=== PATIENT | female | born 1980 | race Caucasian/White ===

== ENCOUNTER → 2019-09-12 08:29 | Outpatient (CLI) | payer BC, SELFPAY ==
--- NOTE | ~2019-09-12 | MMUS_ITS ---
EXAMINATION: MM diag jennifer implant LT w lesley, US breast LT limited HISTORY: Palpable left breast mass TECHNIQUE: Additional 3-D tomosynthesis images of the left breast were performed and synthetic 2-D im ages were generated. CAD analysis was submitted and interpreted. High resolution left breast ultrasou nd was performed. COMPARISON: Comparison to multiple prior studies sequentially, with oldest reviewed study dated 12/24. FINDINGS: MAMMOGRAPHIC FINDINGS: The breasts are extremely dense, which lowers the sensitivity of mammography. There is a focal asymme try adjacent to the left breast implant laterally on spot cc view. This is not identified on addition al images. ULTRASOUND: Left breast ultrasound: At 4:00 in the area of palpable concern, 7 cm from the nipple, there is an oval circumscribed hypoech oic mass abutting the implant. There is mixed posterior attenuation with areas of shadowing no signif icant internal vascularity. This mass measures 11 x 6 x 10 mm. There are low level internal echoes. IMPRESSION: 1. 11 mm oval circumscribed hypoechoic left breast mass at 4:00, 7 cm from the nipple in the area of palpable concern. There is posterior shadowing and no internal vascularity. 2. Ultrasound-guided left breast biopsy recommended. BI-RADS category 4, suspicious findings. Reviewed, dictated and finalized at location A. IMPRESSION: 1. 11 mm oval circumscribed hypoechoic left breast mass at 4:00, 7 cm from the nipple in the area of palpable concern. There is posterior shadowing and no int ernal vascularity. 2. Ultrasound-guided left breast biopsy recommended. BI-RADS category 4, suspicious findings.
== END ==
PROVIDERS: PCP Physician Assistant; Visit Provider Nurse Practitioner Obstetrics & Gynecology
DX: N63.23 Unspecified lump in the left breast, lower outer quadrant (principal)
CPT/HCPCS: 76642; 77061; 77065; G0279

== ENCOUNTER → 2020-03-31 18:10 | Outpatient (CLI) | payer BC, SELFPAY ==
--- NOTE | ~2020-03-31 | MM_ITS ---
EXAMINATION: MM scrn jennifer implant BI w lesley HISTORY: Screening mammogram TECHNIQUE: Craniocaudal and mediolateral oblique 3-D tomosynthesis images with implant displacement a nd synthetic 2-D images were generated. Craniocaudal and mediolateral oblique views of the breasts wi thout implant displacement were obtained using full field digital mammography. CAD analysis was submi tted and interpreted. COMPARISON: Comparison to multiple prior studies sequentially, with oldest reviewed study dated 11/2015. BREAST PARENCHYMAL COMPOSITION: The breasts are extremely dense, which lowers the sensitivity of mamm ography. FINDINGS: There are subpectoral silicone implants. There is no evidence of suspicious mass, calcifica tion, or architectural distortion to suggest malignancy in either breast. There has been no suspiciou s interval change. IMPRESSION: 1. No mammographic evidence of malignancy. 2. Recommend routine screening mammography in one year. BI-RADS Category 1: Negative Reviewed, dictated and finalized at location A.
== END ==
PROVIDERS: PCP Physician Assistant; Visit Provider Nurse Practitioner Obstetrics & Gynecology
DX: Z12.31 Encounter for screening mammogram for malignant neoplasm of breast (principal)
CPT/HCPCS: 77063; 77067

== ENCOUNTER → 2021-01-06 15:28 | Outpatient (CLI) | payer BC, SELFPAY ==
--- NOTE | ~2021-01-06 | US_ITS ---
EXAMINATION: US thyroid EXAM DATE: 01/06/2021 15:43 INDICATION: Nontoxic goiter. Weight gain, fatigue, hair loss. TECHNIQUE: Multiple grayscale and Doppler images of the thyroid were obtained (by a technologist who performed the scan) and subsequently reviewed. Individual nodules and recommendations may be reporte d in accordance with TI-RADS system as designated by the 2017 ACR White Paper TI-RADS committee. The re is no prior study for comparison. FINDINGS: The right thyroid lobe measures 5.3 x 1.5 x 1.3 cm, the left measuring 4.9 x 0.9 x 1.4 cm. Mildly het erogeneous thyroid echogenicity with right thyroid lobe nodule measuring 6 mm, not likely clinically significant. IMPRESSION: Mild thyromegaly. Reviewed, dictated and finalized at location A. IMPRESSION: Mild thyromegaly.
== END ==
PROVIDERS: Visit Provider Internal Medicine Endocrinology, Diabetes & Metabolism
DX: E04.9 Nontoxic goiter, unspecified (principal)
CPT/HCPCS: 76536

== ENCOUNTER → 2021-04-07 16:43 | Outpatient (CLI) | payer BC, SELFPAY ==
--- NOTE | ~2021-04-07 | MM_ITS ---
EXAMINATION: MM scrn jennifer implant BI w lesley HISTORY: Screening mammogram TECHNIQUE: Craniocaudal and mediolateral oblique 3-D tomosynthesis images with implant displacement a nd synthetic 2-D images were generated. Craniocaudal and mediolateral oblique views of the breasts wi thout implant displacement were obtained using full field digital mammography. CAD analysis was submi tted and interpreted. COMPARISON: Comparison to multiple prior studies sequentially, with oldest reviewed study dated 11/2015. BREAST PARENCHYMAL COMPOSITION: The breasts are extremely dense, which lowers the sensitivity of mamm ography. FINDINGS: There are subpectoral silicone implants. There is no evidence of suspicious mass, calcifica tion, or architectural distortion to suggest malignancy in either breast. There has been no suspiciou s interval change. IMPRESSION: 1. No mammographic evidence of malignancy. 2. Recommend routine screening mammography in one year. BI-RADS Category 1: Negative Reviewed, dictated and finalized at location A.
== END ==
PROVIDERS: Visit Provider Nurse Practitioner Obstetrics & Gynecology
DX: Z12.31 Encounter for screening mammogram for malignant neoplasm of breast (principal)
CPT/HCPCS: 77063; 77067

== ENCOUNTER → 2021-12-09 15:19 | Outpatient (CLI) | payer BC, SELFPAY ==
--- NOTE | ~2021-12-09 | US_ITS ---
EXAMINATION: US thyroid DATE: 12/09/2021 15:34 INDICATION: Goiter. TECHNIQUE: Multiple ultrasound images of the thyroid were obtained. COMPARISON: None. FINDINGS: The right thyroid lobe measures 5.6 x 1.3 x 1.6 cm. The left thyroid lobe measures 5.1 x 1.1 x 1.6 c m. There is normal echotexture and echogenicity throughout the thyroid gland. 6 mm right mid lobe mo stly solid hypoechoic nodule, wider than tall, smoothly marginated without echogenic foci (TR 4). 6 m m left inferior lobe solid hypoechoic nodule, wider than tall, smoothly marginated without echogenic foci (TR 4) nodule. 3 mm left isthmus solid hypoechoic nodule, wider than tall, smoothly marginated w ithout echogenic foci (TR 4). Normal vascular flow is present. IMPRESSION: 1. Multiple subcentimeter thyroid nodules, likely of no clinical significance, requiring no biopsy or additional follow-up. Reviewed, dictated and finalized at location K.
== END ==
PROVIDERS: PCP Physician Assistant; Visit Provider Internal Medicine Endocrinology, Diabetes & Metabolism
DX: E04.9 Nontoxic goiter, unspecified (principal)
CPT/HCPCS: 76536

== ENCOUNTER 2022-03-26 15:28 | Outpatient (CLI) | payer BC, SELFPAY | END 2022-03-26 15:29 | disposition home or self-care (01) | LOC: ANHSURGERY 15:35 | PROVIDERS: PCP Physician Assistant; Visit Provider Obstetrics & Gynecology | DX: Z01.818 Encounter for other preprocedural examination (principal); N92.0 Excessive and frequent menstruation with regular cycle | CPT/HCPCS: 36415; 86850; 86900; 86901 ==

== ENCOUNTER 2022-03-31 00:48 | Day surgery (SDC) | payer BC, SELFPAY ==
--- NOTE | 2022-03-10 13:43 | SUR.PREOP ---
Office aware patient request to donate own blood prior to surgery and office would need to contact Patient Services at [phone] [employer] would then determine if request qualifies and follow up with request. I also inform patient.
[2022-03-25 14:56] VITALS: BMI 25.0
--- NOTE | 2022-03-25 15:08 | PC.NURSE ---
Report to the Outpatient Waiting Room, entrance under the green pavilion located off [facility], at time _0600_ on date _[id number]_. OR Time: _0730_. Time changes happen often and if your time is changed the preop area will call you the afternoon before. - You and your visitor will be asked to self-screen and do not enter if you have any COVID symptoms. - Only one visitor and NO children visitors are allowed at this time. - The patient visitor is requested to leave or wait in car when not with patient due to restrictions. - A mask is required within the hospital. Patients may have clear liquids (water, carbonated beverages, clear teas, apple juice) until 3 hours prior to surgery with a maximum of 20 ounces. - No food from midnight until time of surgery Take the following medications with a SIP of water the morning of surgery: Levothyroxine Medications to discontinue per physician Multivitamin Date to take last iooc___[id number] Please no make-up, nail cambodian, hairspray, perfume, deodorant, or body powder the day of surgery. No jewelry (including any body piercings) or valuables the day of surgery, leave them at home. Please take a shower or bath the night before, or the morning of, surgery with an antibacterial soap. Wear comfortable, loose fitting clothing. - Jewelry must be removed prior to entering the operating room. Rings and piercings that are not removed may be cut off. - The hospital will not accept responsibility for valuables. - Please leave all valuables, including medications, at home the day of surgery. If you are going home after surgery, a licensed services delivery driver must drive you home. - NO public transportation without another adult. - We recommend that an adult stay with you for 24 hours following discharge. - We also recommend that you do not drive, make important decision, drink alcoholic beverages, or take any drugs that were not prescribed by your health care provider for at least 24 hours after your discharge time. Follow any additional instructions given to you from your surgeon. If you or anyone in your household have experienced Covid symptoms in the past week, please notify your surgeon or the nurse liaison at the phone number below for possible testing. Telephone instructions given to __Patient__and asked if any additional questions and then verbalized understanding. Patient advised to call surgeon office or pre surgery nurse liaison [phone] if any additional questions.
--- NOTE | 2022-03-30 13:43 | P.PNAN_ITS ---
Anes - Initial Pre Proc Eval Procedure: Operation Date: 03/31/22 07:30 Proposed Procedures p Total Laparoscopic Hysterectomy with Bilateral Salpingo Oophorectomy - Angela Campbell MD Date/Time: 03/30/22 13:43 Surgeon: Angela Campbell MD Pre Op Diagnosis: menorrhaghia Patient Data Age: 41 Gender: F Height: 1.78 m Weight: 79 kg Allergies Allergy/AdvReac Type Severity Reaction Status Date / Time nickel Allergy Unknown HIVES Verified 03/31/22 07:10 penicillamine Allergy Unknown Unknown Verified 03/31/22 07:10 oxycodone AdvReac Intermediate Nausea and Verified 03/31/22 07:10 Vomiting Home Medications Medication Instructions Recorded Confirmed Type levothyroxine 50 mcg tablet 50 mcg PO DAILY 07/14/21 03/31/22 History (Synthroid) multivitamin 1 tablet PO DAILY 03/25/22 03/31/22 History Patient hx anesthesia problems: post op nausea/vomiting Family hx anesthesia problems: none Results Review: All pre-operative results and documents have been reviewed as part of the pre- operative evaluation. [facility] Past Medical History Medical History (Updated 03/30/22 @ 13:43 by Aaron Johnson MD) Hypothyroid Surgical History Surgical History (Updated 12/15/21 @ 16:11 by Skylar Tinoco) History of breast surgery Family History Family History Mother Heart disease Social History Social History Smoking packs per day: 0.75 Smoking cigarettes per day: 15.0 Years smoked: 5 Smoking pack-years: 3.75 Smoking status: Former smoker Tobacco type: cigarettes Smoking end date: 03/25/02 Alcohol intake: current Drinks per week: 3 Living arrangements: with family Spiritual care concerns: No Anes - Eval Final PreProcedure Day of Procedure 03/30/22 13:43 Patient weight: normal Heart: regular rate and rhythm Lungs: clear to auscultation Airway: Mallampati scale class II Neurological: alert and oriented Last oral intake: >/= 8 hours ASA classification: II Emergent: no Anesthetic plan: proceed Anesthesia type and monitoring: general ETT and standard monitoring Results Review: All pre-operative results and documents have been reviewed as part of the pre- operative evaluation. Informed Consent: The patient's anesthetic plan and its attendant risks and benefits were discussed with the patient/family/POA. Questions were solicited and answers provided to the satisfaction of the patient/family/POA.
[2022-03-31] VITALS (12 sets, daily range): BP systolic 81–124; BP diastolic 46–95; PULSE 48–84; RESP 12–18; TEMP 36.3–37.3; O2SAT 97–100
[2022-03-31] MEDS: LACTATED RINGERS 1,000 ML 30 ML IV CONT ×2 (06:55→09:31)
[2022-03-31] MEDS: KETOROLAC 15 MG/ML VIAL (*BKC) IV PUSH (07:06)
[2022-03-31] MEDS: SCOPOLAMINE 1.5 MG PATCH TRANSDERM (07:06)
[2022-03-31] MEDS: ACETAMINOPHEN 500 MG TABLET 1000 MG PO (07:06)
--- NOTE | 2022-03-31 07:07 | WPDHPUPDATE1 ---
History and Physical Update Update Date/Time: 03/31/22 07:07 History and Physical has been reviewed, including an updated exam of the patient. There are NO changes in the patient's condition. Risks, benefits, and alternatives have been discussed and questions answered. Patient agrees to proceed with procedure.
[2022-03-31] MEDS: ceFAZolin 2 GM/D5W 50 ML 2 GM/50 ML BAG IVPB (07:29)
[2022-03-31] MEDS: ceFAZolin SODIUM 1 GM VIAL (08:22)
--- NOTE | 2022-03-31 09:24 | P.OP_ITS ---
Procedure Note - Detailed Date of Procedure 03/31/22 Pre-op Diagnosis menorrhaghia Post-op Diagnosis Same Procedure Performed Total laparoscopic hysterectomy and bilateral oophorectomy. Surgeon Angela Campbell MD Anesthesia General Indications Menorrhagia Findings Paracervical scar tissue, increased vascularity to the uterus, some scarring in the posterior cul-de-sac. Normal-appearing ovaries. Enlarged, mildly enlarged uterus. Description of Procedure This patient was taken to the operating room. She was prepped and draped in the dorsal lithotomy position after induction of general anesthesia. The uterine manipulator and Lulu cup were placed. This was done with a speculum and tenaculum. The speculum was placed. The cervix was grasped with a tenaculum. The stay sutures were placed at 3 and 9:00 a.m.. The stay sutures of 0 Vicryl were brought through the appropriately sized Lulu cup. The tip of the JERILYN manipulator was placed in the intrauterine cavity. The cup was slid into place around the cervix and into the fornices. It was locked into place. The sutures were then wrapped around the handle and tied under tension. A 5 mm skin incision was made in the left upper quadrant the abdomen. A 5 mm trocar was inserted into the intrauterine cavity under direct visualization of the scope. Pneumoperitoneum was achieved. A left lower quadrant 11 mm incision was made with scalpel. An 11 mm trocar was inserted into the anterior abdominal cavity under direct visualization the scope. A 5 mm infraumbilical incision was made with a scalpel and a 5 mm trocar was inserted the intra-abdominal cavity under direct visualization of the scope. Bilateral ureteral lysis was performed. This was done from the pelvic brim down to the uterine artery. This was done with careful dissection using sharp and blunt dissection. The infundibulopelvic ligaments were isolated after identification of the ureters bilaterally. These infundibulopelvic ligaments were cauterized and transected with LigaSure cautery. The para ovarian tissue was cauterized and transected with LigaSure cautery bilaterally. Moving around the ovary into the broad ligament the tissue was cauterized transected with Lig aSure cautery. The round ligaments were cauterized transected with LigaSure cautery this was all done in a bilateral fashion. In a stepwise fashion along the lateral aspects of the uterus the round ligament and broad ligaments were cauterized transected down to the level of the uterine arteries. A bladder flap was created in the bladder was moved distally to the end of the cervix and over the Lulu cup. The bilateral uterine arteries were cauterized and transected. Colpotomy was then performed. In a circumferential fashion the vagina was transected using unipolar cautery. The incision was made down on the Lulu cup. The uterus, cervix, fallopian tubes and ovaries were taken out through the vagina. A pneumo occluder was placed in the vagina. The vaginal cuff was closed with a 0 V lock suture in a running fashion. The pelvis was irrigated with copious amounts antibiotic irrigation. The ureters were again examined and found to be intact and flowing freely under the uterine arteries into the bladder. The bladder was intact. It was examined directly. The vagina was irrigated with Betadine solution after removal of the Pneumo occluder. The patient was taken to recovery room. She was stable condition. Sponge lap and needle counts were correct x2. Estimated Blood Loss 75 Drains Yes Packing No Pathology Yes Complications No immediate complications Condition Stable Disposition Floor
--- NOTE | 2022-03-31 09:44 | SUR.PHASEI ---
around 0935 pt started to become hypotensive in 80sbp and bradycardic in 40s. dr church was informed and said to open her fluids and continue to monitor. Dr church said it could be due to the fentanyl that he just gave her upon arrival to the PACU. pt is responsive to voice and oriented. Pt said she is sensitive to pain medicine. Will continue to monitor. pt abd is soft. pt pain 3/10 now.
[2022-03-31] MEDS: fentaNYL CITRATE INJ (*CRX) 100 MCG/2 ML VIAL 25 MCG IV PUSH (10:05)
[2022-03-31] MEDS: DEXTROSE 5%/0.45% SOD CHL 1,000 ML 125 ML IV CONT (11:18)
[2022-03-31] MEDS: ONDANSETRON INJ 4 MG/2 ML VIAL IV PUSH (12:15)
[2022-03-31] MEDS: ESTRADIOL 7 DAY 0.05 MG PATCH TRANSDERM (12:18)
[2022-03-31] MEDS: KETOROLAC 30 MG/ML VIAL (*BKC) IV PUSH (12:46)
[2022-03-31] MEDS: HYDROcodone/acetaminophen (*CRX) 5-325 MG TABLET 1 TAB PO (19:47)
[2022-03-31] MEDS: IBUPROFEN 600 MG TABLET PO (19:48)
[2022-04-01 05:16] VITALS: BP 94/62; PULSE 63; RESP 18; TEMP 36.6; O2SAT 100
--- NOTE | 2022-04-01 07:28 | WPDANESPN ---
Anes - Prog Note Post-Op Date/Time: 04/01/22 07:28 Cardiovascular status: normal Respiratory status: normal Airway patency: baseline Mental status: baseline Post-Op hydration status: normal Vital Signs: Last Vital Signs Temp 97.8 F 04/01/22 05:16 Pulse 63 04/01/22 05:16 Resp 18 04/01/22 05:16 BP 94/62 L 04/01/22 05:16 Pulse Ox 100 04/01/22 05:16 O2 Del Method Room Air 04/01/22 05:16 O2 Flow Rate 6 03/31/22 09:45 Pain Score (VAS): 0/10 I/O: Intake & Output 03/31/22 03/31/22 04/01/22 15:59 23:59 07:59 Intake Total 240 2011 1100 Output Total 130 1850 1200 Balance 110 161 -100 Post-procedural complaints: none Patient Feedback: Patient satisfied with anesthetic care.
[2022-04-01] MEDS: IBUPROFEN 600 MG TABLET PO (08:09)
--- NOTE | 2022-04-01 08:20 | PM.GYNPNOP ---
UTILITY LINEMAN - A/P Postoperative Procedures: Procedures Operation Date: 03/31/22 07:30 Actual Procedure Side Surgeon p Total Laparoscopic Hysterectomy with Bilateral Salpingo Oophorectomy Bilateral Angela Campbell MD Postoperative day: 1 Postoperative status: doing well Postoperative plan: see orders Time Spent With Patient Time: Total time spent is greater than 50% in coordination of care (as documented) at patient's floor/unit and/or counseling patient: Time with patient: less than 15 minutes UTILITY LINEMAN- PN:Subj Post-Op Subjective Date/time seen: 04/01/22 08:20 Subjective: patient reports feeling better, patient has no complaints and pain is well controlled Exam Const: General: healthy appearing, comfortable and no acute distress Resp: Auscultation: clear to auscultation bilaterally, no rales, no rhonchi and no wheezes Cardio: Rate: regular rate Heart sounds: no click, no murmurs and no rubs GI: Inspection: non-distended Auscultation: normal bowel sounds Extrem: General: normal to inspection, no pedal edema and no calf tenderness UTILITY LINEMAN - PN: Obj Data Vital Signs Vital Signs: Vital Signs - 24 hr 03/31/22 09:30 03/31/22 09:45 03/31/22 09:35 Temperature 97.3 F L Pulse Rate 61 48 L 54 L Respiratory Rate 12 14 13 Blood Pressure 124/95 H 82/60 L 81/46 L Pulse Oximetry 100 100 99 Oxygen Delivery Simple Face Mask Simple Face Mask Simple Face Mask Oxygen Flow Rate 6 6 6 03/31/22 10:00 03/31/22 10:15 03/31/22 10:30 Temperature Pulse Rate 56 L 55 L 55 L Respiratory Rate 13 13 13 Blood Pressure 88/63 L 96/62 L 96/62 L Pulse Oximetry 100 100 100 Oxygen Delivery Room Air Room Air Room Air Oxygen Flow Rate 03/31/22 10:45 03/31/22 11:05 03/31/22 11:00 Temperature 97.5 F L Pulse Rate 63 62 Respiratory Rate 16 18 Blood Pressure 98/70 L 91/55 L Pulse Oximetry 100 100 Oxygen Delivery Room Air Room Air Oxygen Flow Rate 03/31/22 17:00 03/31/22 17:00 03/31/22 19:45 Temperature 99.2 F Pulse Rate 79 84 Respiratory Rate 18 18 Blood Pressure 97/64 L Pulse Oximetry 99 99 Oxygen Delivery Room Air Room Air Oxygen Flow Rate 03/31/22 23:10 03/31/22 19:45 03/31/22 23:10 Temperature 98.8 F 98.6 F Pulse Rate 68 70 68 Respiratory Rate 18 18 18 Blood Pressure 92/55 L 97/60 L Pulse Oximetry 97 98 97 Oxygen Delivery Room Air Oxygen Flow Rate 04/01/22 05:16 04/01/22 05:16 Temperature 97.8 F Pulse Rate 63 63 Respiratory Rate 18 18 Blood Pressure 94/62 L Pulse Oximetry 100 100 Oxygen Delivery Room Air Oxygen Flow Rate Intake/Output Intake/Output: Intake & Output 03/29/22 03/30/22 03/31/22 04/01/22 23:59 23:59 23:59 23:59 Intake Total 2301 1100 Output Total 1980 1200 Balance 321 -100 Meds/Results Medications: Active Medications Generic Name Dose Route Start Last Admin Trade Name Freq PRN Reason Stop Dose Admin Hydrocodone Bitart/Acetaminophen 1 tab 03/31/22 10:54 03/31/22 19:47 Hydrocodone/Acetaminophen (*Crx) 5-325 Mg Tablet PO 1 tab Q3H PRN Administration Pain Rated 5 or Less Hydrocodone Bitart/Acetaminophen 1 tab 03/31/22 10:54 Hydrocodone/Acetaminophen (*Crx) 10-325 Mg Tablet PO Q3H PRN Pain Rated 6 or Greater Estradiol 0.05 mg 03/31/22 10:54 03/31/22 12:18 Estradiol 7 Day 0.05 Mg Patch TRANSDERM 0.05 mg WEEKLY CECE Administration Ibuprofen 600 mg 03/31/22 10:54 04/01/22 08:09 Ibuprofen 600 Mg Tablet PO 600 mg Q6H PRN Administration Cramping Ketorolac Tromethamine 30 mg 03/31/22 10:54 03/31/22 12:46 Ketorolac 30 Mg/Ml Vial (*Bkc) IV PUSH 04/05/22 10:53 30 mg Q6H PRN Administration Pain Rated 4-6 Levothyroxine Sodium 50 mcg 04/01/22 06:30 04/01/22 05:50 Levothyroxine Sodium 50 Mcg Tablet PO Not Given DAILY@0630 CECE Naloxone HCl 0.1 mg 03/31/22 10:54 Naloxone Hcl 0.4 Mg/Ml Vial IV PUSH Q2M PRN Respiratory rate less than 10 Ondansetro
[2022-04-01 08:40] VITALS: BP 102/65; PULSE 76; RESP 18; TEMP 36.6; O2SAT 100
== END 2022-04-01 09:50 | disposition home or self-care (01) ==
LOC: ANHSURGERY 09:57 → ANHOB2 11:07
PROVIDERS: PCP Physician Assistant; Visit Provider Obstetrics & Gynecology
PROC: 0UT9FZZ Resection of Uterus, Via Natural or Artificial Opening With Percutaneous Endoscopic Assistance (ICD-10-PCS; CPT 58552; principal; 2022-03-31 07:30)
DX: D25.9 Leiomyoma of uterus, unspecified (principal); N92.0 Excessive and frequent menstruation with regular cycle; N83.209 Unspecified ovarian cyst, unspecified side; N94.6 Dysmenorrhea, unspecified
CPT/HCPCS: 58552; 88307; 99199; A9270; J0690; J1100; J1170; J1885; J2250; J2405; J2704; J3010; J7030; J7120

== ENCOUNTER → 2022-04-12 12:35 | Outpatient (CLI) | payer BC, SELFPAY ==
--- NOTE | ~2022-04-12 | CT_ITS ---
EXAMINATION: CT abdomen pelvis w con INDICATION: Left inguinal pain, recent hysterectomy TECHNIQUE: Computed tomographic images of the abdomen and pelvis were obtained after the administrati on of 100 cc of Omnipaque 350 intravenous contrast. The dose-length product (DLP) was 699.90 mGy-cm. Automated exposure control and iterative reconstruction technique were employed. COMPARISON: None available FINDINGS: The lung bases are clear. The heart size is normal. The liver, spleen, pancreas, gallbladde r, and adrenal glands are normal. The kidneys are unremarkable. No pathologically enlarged abdominal or pelvic lymph nodes are identified. There is no free intraperitoneal gas or evidence of bowel obstr uction. There is mild lumbar spondylosis. IMPRESSION: 1. No CT correlate for the patient's symptoms. Reviewed, dictated and finalized at location A.
== END ==
PROVIDERS: PCP Physician Assistant; Visit Provider Obstetrics & Gynecology
DX: R10.2 Pelvic and perineal pain (principal)
CPT/HCPCS: 74177; Q9967

== ENCOUNTER → 2022-04-16 12:45 | Outpatient (CLI) | payer BC, SELFPAY ==
--- NOTE | ~2022-04-16 | US_ITS ---
EXAMINATION: US venous doppler [facility] DATE: 04/16/2022 13:08 INDICATION: Left lower limb pain TECHNIQUE: Grayscale ultrasound images without and with compression and Doppler ultrasound images of the left lower extremity veins were obtained. COMPARISON: None. FINDINGS: The visualized portions of left common femoral vein, profunda (deep) femoral vein, femoral vein, popl iteal vein, peroneal veins, posterior tibial veins, gastrocnemius vein and greater saphenous vein out flow are patent. IMPRESSION: 1. No deep venous thrombosis in the left lower limb. Reviewed, dictated and finalized at location A.
== END ==
PROVIDERS: PCP Physician Assistant; Visit Provider Obstetrics & Gynecology
DX: M79.605 Pain in left leg (principal)
CPT/HCPCS: 93971

== ENCOUNTER → 2022-04-22 15:09 | Outpatient (CLI) | payer BC, SELFPAY ==
--- NOTE | ~2022-04-22 | MM_ITS ---
EXAMINATION: MM scrn jennifer implant BI w lesley HISTORY: Screening mammogram TECHNIQUE: Craniocaudal and mediolateral oblique 3-D tomosynthesis images with implant displacement a nd synthetic 2-D images were generated. Craniocaudal and mediolateral oblique views of the breasts wi thout implant displacement were obtained using full field digital mammography. CAD analysis was submi tted and interpreted. COMPARISON: 04/07/2021, 03/31/2020, 09/12/2019 BREAST PARENCHYMAL COMPOSITION: The breasts are heterogeneously dense, which may obscure small masses . FINDINGS: Scattered benign-appearing calcifications are present. There is no evidence of suspicious m ass, calcification, or architectural distortion to suggest malignancy in either breast. There has bee n no suspicious interval change. IMPRESSION: 1. No mammographic evidence of malignancy. 2. Recommend routine screening mammography in one year. BI-RADS Category 2: Benign finding(s). Reviewed, dictated and finalized at location A.
== END ==
PROVIDERS: PCP Physician Assistant; Visit Provider Obstetrics & Gynecology
DX: Z12.31 Encounter for screening mammogram for malignant neoplasm of breast (principal)
CPT/HCPCS: 77063; 77067

== ENCOUNTER → 2022-07-20 08:13 | Outpatient (CLI) | payer BC, SELFPAY ==
--- NOTE | ~2022-07-20 | MMUS_ITS ---
EXAMINATION: MM diag jennifer implant BI w lesley, US breast BI complete HISTORY: Left upper inner breast lump. Patient sometimes notices a right lower inner quadrant breast lump, but is unable to feel it today. TECHNIQUE: ML, MLO and CC implant displaced 3-D tomosynthesis images of both breasts were performed a nd synthetic 2-D images were generated. Implant ML, MLO and CC views. CAD analysis was submitted and interpreted. High resolution complete bilateral breast ultrasound examination including all 4 quadran ts and subareolar areas was performed. COMPARISON: 04/22/2022 bilateral implant screening mammogram BREAST PARENCHYMAL COMPOSITION: The breasts are extremely dense, which lowers the sensitivity of mamm ography. FINDINGS: MAMMOGRAPHIC FINDINGS: Status post bilateral augmentation mammoplasty. No suspicious mass or architectural distortion, malignant calcification, skin thickening or retractio n or significant new or developing density is detected. However, very dense stroma may obscure shreya s on either side. For this reason, complete bilateral breast ultrasound examination was performed. ULTRASOUND: Right breast: 11:00 1 cm from nipple: Parallel circumscribed hypoechoic 6 x 2.1 x 6.2 mm lesion without internal va scularity or posterior shadowing, benign in appearance 10:00 8 cm from nipple: Parallel circumscribed hypoechoic 1.7 x 5.3 x 4.7 mm lesion without internal vascularity or shadowing, benign in appearance 2:00 subareolar area: Parallel circumscribed hypoechoic 5.6 x 2 x 4.7 mm lesion without internal vasc ularity or posterior shadowing At the right breast 3:00 position 3 cm from the nipple where there is reported palpable abnormality, no sonographic abnormality is identified. Left breast: 4:00 5 cm from nipple: Parallel circumscribed hypoechoic 1 4.4 x 9.9 x 11 mm hypoechoic lesion withou t internal vascularity or posterior shadowing 8:00 5 cm from nipple: Parallel circumscribed hypoechoic 2.9 x 8.2 x 9.3 mm hypoechoic lesion without internal vascularity or posterior shadowing IMPRESSION: 1. Probable bilateral benign findings 2. 6 month follow-up bilateral breast ultrasound imaging is recommended BI-RADS category 3, probably benign findings. Reviewed, dictated and finalized at location A. [employer] IMPRESSION: 1. Probable bilateral benign findings 2. 6 month follow-up bilateral breast ultrasound imaging is recommended BI-RADS category 3, probably benign findings.
== END ==
PROVIDERS: PCP Physician Assistant; Visit Provider Nurse Practitioner Obstetrics & Gynecology
DX: N64.4 Mastodynia (principal); N63.20 Unspecified lump in the left breast, unspecified quadrant
CPT/HCPCS: 76641; 77062; 77066; G0279

== ENCOUNTER 2022-08-18 08:07 | Outpatient (CLI) | payer BC, SELFPAY ==
--- NOTE | 2022-09-13 10:50 | WPDSLEEPSTUD ---
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 She has complaints of frequent moving during sleep, flipping and flopping. She has been using a new bed since 2020. Sometimes, she notices a strange throat snoring sound at night. She uses melatonin on occasion. She rarely wakes from sleep feeling short of breath. Never has heartburn symptoms at night, no belching or coughing. She occasionally snores, rarely loudly enough that others complain. She rarely has trouble sleeping with a cold. She rarely gasps for breath at night. She constantly sweats at night. She occasionally notices her heart pounding irregularly at night. She does not fall asleep in the day, involuntarily, or while driving. She occasionally notices loss of muscle tone with strong emotion. She occasionally has daytime difficulties due to excessive sleepiness. She does not feel paralyzed on waking or falling asleep. She frequently has vivid dreamlike scenes on waking or falling asleep. She is never afraid to go to sleep. Rare nightmares. She frequently remembers her dreams. She frequently has racing thoughts. She rarely feels sad or depressed. She rarely has anxiety, She frequently has muscle tension. She occasionally notices parts of her body jerking, and occasionally kicks at night. She occasionally has achy crawling feelings in her legs at night. she rarely has leg pain at night. she occasionally has morning jaw pain, occasionally grinds her teeth at night. She occasionally wakes with joint stiffness and achy muscles. Levi has fatigue, memory problems, and concentration difficulties. Normal bedtime is 8-10 pm, falling asleep in 15-20 min some nights, or may lie in bed for hours trying to go to sleep. She wakes 2-4 times at night, sometimes to reposition and other times, to urinate. If she wakes between 3-5 am, she may stay awake for the rest of the night. She wakes forth day between 1-5 am. on weekends, she goes to bed later, 9-11 pm and wakes 1-5 am. She denies taking naps. A short nap may be refreshing. She is drowsy for 2 hours after waking. She feels better in the morning compared to other times of day. She has rare morning headaches. She has occasional memory problems. Habits: Quit tobacco 2002. Caffeine: 2 per day. Alcohol: wine 1-2 times a week. No recreational substances. [facility] Past Medical History Medical History (Updated 09/13/22 @ 11:18 by Florida Ford MD) Hypothyroid Surgical History Surgical History (Updated 09/13/22 @ 11:33 by Florida Ford MD) H/O bilateral oophorectomy History of bladder surgery History of breast surgery History of sinus surgery S/P hysterectomy Family History Family History Mother Heart disease Social History Social History Smoking packs per day: 0.75 Smoking cigarettes per day: 15.0 Years smoked: 5 Smoking pack-years: 3.75 Smoking status: Former smoker Tobacco type: cigarettes Smoking end date: 03/25/02 Alcohol intake: current Drinks per week: 3 Living arrangements: with family Spiritual care concerns: No Medications Home Medications Medication Instructions Recorded Confirmed Type levothyroxine 50 mcg tablet 50 mcg PO DAILY 07/14/21 03/31/22 History (Synthroid) multivitamin 1 tablet PO DAILY 03/25/22 03/31/22 History Sleep Procedure This test was performed using the [employer] multiple channel system including EOG, EEG, submental EMG, EKG, nasal and oral airflow using thermistors and nasal pressure sensors, chest and abdominal belts for body position data,
[2022-09-13 11:38] VITALS: BMI 25.1
== END 2022-08-19 06:32 | disposition home or self-care (01) ==
LOC: ANHCSM 08:24
PROVIDERS: PCP Physician Assistant; Visit Provider Physician Assistant
DX: G47.10 Hypersomnia, unspecified (principal); G47.9 Sleep disorder, unspecified
CPT/HCPCS: 95810

== ENCOUNTER 2024-02-17 15:24 | Outpatient (CLI) | payer BC, SELFPAY ==
--- NOTE | ~2024-02-17 | US_ITS ---
EXAMINATION: US thyroid DATE: 02/17/2024 15:46 INDICATION: Goiter. TECHNIQUE: Multiple ultrasound images of the thyroid were obtained. COMPARISON: Ultrasound 11/29/2022, 01/06/2021 FINDINGS: The right thyroid lobe measures 5.2 x 1.3 x 1.4 cm. The left thyroid lobe measures 4.4 x 1.1 x 1.6 c m. In the left thyroid lobe, there is a 6 mm solid, hypoechoic, wider than tall nodule with smooth m argin without echogenic foci (TI-RADS TR4). In the right thyroid lobe, there is an 8 mm solid, hypoec hoic, wider than tall nodule with ill-defined margin without echogenic foci (TR4). In the right thyro id lobe, there is an 11 mm solid, isoechoic, solid nodule with smooth margin without echogenic foci ( TR3). IMPRESSION: 1. Small thyroid nodules, likely not clinically significant. No follow-up is needed. Reviewed, dictated and finalized at location A. IMPRESSION: 1. Small thyroid nodules, likely not clinically significant. No follow-up is ne eded.
== END 2024-02-17 15:25 ==
LOC: MICIMG 15:25
PROVIDERS: PCP Physician Assistant; Visit Provider Internal Medicine Endocrinology, Diabetes & Metabolism
DX: E04.2 Nontoxic multinodular goiter (principal)
CPT/HCPCS: 76536